=== PATIENT | female | born 1985 | race Caucasian/White ===

== ENCOUNTER 2021-06-21 06:22 | Emergency (ER) | payer MEDICAID ==
[~2021-06-21] VITALS: Ht 165.1 cm; Wt 83.5 kg
--- NOTE | 2021-06-21 06:31 | NUR ---
PT BRANDIRA FROM HOME C/O HEADACHE X FEW DAYS POST HAVING COVID AND BEING ADMITTED. PATIENT ALERT AND ORIENTED X3. AMBULATORY WITH NON LABORED BREATHING. PATIENT PLACED IN BED 11 ON MONITOR AND POX.
[2021-06-21] MEDS ORDERED: IV NS 0.9% 1,000 ML IV ONE (07:00)
[2021-06-21] MEDS ORDERED: KETOROLAC TROMETHAMINE 15 MG/ML VIAL ONE (07:00)
[2021-06-21] MEDS ORDERED: METOCLOPRAMIDE HCL 10 MG/2 ML VIAL ONE (07:00)
[2021-06-21] MEDS ORDERED: diphenhydrAMINE HCL 50 MG/ML VIAL IV ONE (07:00)
[2021-06-21] MEDS ORDERED: KETOROLAC TROMETHAMINE INJ 30 MG/ML VIAL IV ONE (07:00)
[2021-06-21] MEDS ORDERED: diphenhydrAMINE HCL 50 MG/ML VIAL ONE (07:00)
[2021-06-21] MEDS ORDERED: METOCLOPRAMIDE HCL 10 MG/2 ML VIAL IV ONE (07:00)
[2021-06-21] MEDS ORDERED: IBUP-1955 PO (07:19)
[2021-06-21 08:07] VITALS: BP 136/88
--- NOTE | 2021-06-21 08:07 | NUR ---
Patient discharged to home in stable condition. Written and verbal after care instructions given. Patient verbalizes understanding of instruction.IV removed. Catheter intact and site benign. Pressure and 4x4 applied to site. No bleeding noted.
== END 2021-06-21 08:08 | disposition home or self-care (01) ==
LOC: ER 06:22
DX: R51.9 Headache, unspecified (principal); R11.2 Nausea with vomiting, unspecified; E03.9 Hypothyroidism, unspecified; Z86.16 Personal history of COVID-19
CPT/HCPCS: 96361; 96374; 96375; 99284; J1200; J1885; J2765; J7030